=== PATIENT | female | born 1980 | race Caucasian/White ===

== ENCOUNTER 2017-05-02 20:21 | Emergency (ER) | payer SELFPAY ==
[~2017-05-02] VITALS: Ht 167.6 cm; Wt 100.0 kg
[~2017-05-02 20:21] MED LIST: BENTYL 10MG10 MG/CAP PO; DEPO-PROVER150 MG/M1 IM; IBU600 MG PO; MOTRIN 600600 MG/TAB PO; MUCINEX 60600 MG/TAB PO; NORCO 325 MG-51 TAB PO; PEPCID 20MG TAB20 MG PO; PRENATAL 191 CTB PO; PRENATAL VITAMI1 TA5 PO; TESSALON PERLE200 MG PO; ZANTAC 150MG T150 MG PO
[2017-05-02 20:32] VITALS: BP 129/82; TEMP 98.5
[2017-05-02] MEDS ORDERED: FLEXERIL 1010 MG/TAB PO (22:14)
[2017-05-02 22:26] VITALS: PULSE 80
== END 2017-05-02 22:26 | disposition home or self-care (01) ==
LOC: COL.ER 20:21
DX: S00.83XA Contusion of other part of head, initial encounter (principal); W51.XXXA Accidental striking against or bumped into by another person, initial encounter

== ENCOUNTER → 2018-04-16 | Outpatient (CLI) | payer OTHER ==
[~2018-04-16] MED LIST changes: +FLEXERIL 1010 MG/TAB PO
== END ==
LOC: COL.RAD 16:12
DX: R10.32 Left lower quadrant pain (principal)

== ENCOUNTER → 2018-04-17 | Emergency (ER) | payer OTHER ==
[~2018-04-17] VITALS: Ht 165.1 cm; Wt 109.1 kg
[2018-04-17 04:00] VITALS: BP 168/85; PULSE 84
== END ==
LOC: COL.ER 03:54
DX: R52 Pain, unspecified (principal); Z97.5 Presence of (intrauterine) contraceptive device

== ENCOUNTER → 2019-03-02 | Outpatient (CLI) | payer OTHER | LOC: MC.RAD 10:02 | DX: N63.21 Unspecified lump in the left breast, upper outer quadrant (principal); R22.2 Localized swelling, mass and lump, trunk; N64.4 Mastodynia | CPT/HCPCS: G0279 ==

== ENCOUNTER 2020-04-19 04:14 | Emergency (ER) | payer OTHER ==
[2020-04-19 04:17] VITALS: TEMP 97.6
[2020-04-19 04:33] LABS: BASO % 0.5 % (0.0-2.0); EOS # 0.2 (0.0-0.7); EOS % 3.2 % (0-4.0); GRAN % 52.9 % (42.2-75.2); HEMOGLOBIN 12.2 g/dl (12.5-16.0); LYMPH % 35.5 % (20.0-51.0); MEAN CELL VOLUME 90 fl (80.0-100.0); MEAN CORPUSCULAR HEMOGLOBIN 30 pg (27.0-31.0); MEAN CORPUSCULAR HGB CONC 33 g/dl (33.0-37.0); MEAN PLATELET VOLUME 11.3 fl (7.4-10.4); MONO # 0.4 (0.1-0.6); MONO % 7.4 % (1.7-9.3); PLATELET COUNT 159 K/mm3 (130-400); RED BLOOD COUNT 4.07 M/mm3 (4.10-5.30); REDCELL DISTRIBUTION WIDTH-CV 12.2 % (11.5-14.5)
[2020-04-19 04:39] LABS: HEMATOCRIT 36.8 % (37.0-47.0)
[2020-04-19 04:45] LABS: ALANINE AMINOTRANSFERASE 17 U/L (4-34); ALBUMIN 3.6 gm/dL (3.5-5.0); ALKALINE PHOSPHATASE 59 U/L (50-136); ANION GAP 9 mmol/L (7-16); AST,SGOT 20 U/L (15-37); BILIRUBIN,TOTAL 0.5 mg/dL (0.0-1.0); BLOOD UREA NITROGEN 12 mg/dL (7-17); CALCIUM 8.1 mg/dL (8.4-10.2); CARBON DIOXIDE 20 mmol/L (22-30); CHLORIDE 110 mmol/L (98-107); GLUCOSE 126 mg/dL (74-106); LIPASE 128 U/L (23-300); MAGNESIUM 1.9 mg/dL (1.6-2.3); POTASSIUM 3.6 mmol/L (3.4-5.0); SODIUM 139 mmol/L (137-145); TOTAL PROTEIN 6.3 gm/dL (6.4-8.2)
[2020-04-19 04:53] LABS: ALCOHOL(ethanol),MEDICAL < 10 mg/dL
[2020-04-19 05:05] LABS: TROPONIN-I < 0.012 ng/mL (0.000-0.035)
[2020-04-19] MEDS ORDERED: ZOFRAN ODT4 MG PO (06:31)
[2020-04-19] MEDS ORDERED: ATIVAN 0.50.5 MG/TAB PO (06:31)
[2020-04-19] MEDS ORDERED: ANTIVERT 25MG25 MG PO (06:31)
[2020-04-19 08:00] VITALS: BP 111/59; PULSE 65
== END 2020-04-19 08:00 | disposition home or self-care (01) ==
LOC: COL.ER 04:14
PROVIDERS: Emergency Medicine
DX: H81.10 Benign paroxysmal vertigo, unspecified ear (principal); Z32.02 Encounter for pregnancy test, result negative
CPT/HCPCS: J1790; J7030

== ENCOUNTER → 2020-09-18 | Outpatient (CLI) | payer OTHER ==
[~2020-09-18] MED LIST changes: +ANTIVERT 25MG25 MG PO; +ATIVAN 0.50.5 MG/TAB PO; +ZOFRAN ODT4 MG PO
== END ==
LOC: COL.RAD 12:30
DX: R41.0 Disorientation, unspecified (principal); R42 Dizziness and giddiness; R47.89 Other speech disturbances; R29.818 Other symptoms and signs involving the nervous system; R51.9 Headache, unspecified
CPT/HCPCS: A9585